=== PATIENT | female | born 1970 | race Caucasian/White ===

== ENCOUNTER 2018-09-25 21:59 | Emergency (ER) | payer MEDICAID ==
[~2018-09-25] VITALS: Ht 165.1 cm; Wt 60.0 kg
[2018-09-25 22:02] VITALS: Ht 165.1 cm; Wt 60.0 kg
[2018-09-25] MEDS ORDERED: DIPHENHYDRAMINE 50 MG INJ IV ONE (23:30)
[2018-09-25] MEDS ORDERED: SOD CHLORIDE 0.9% 1,000 ML IV ONE (23:30)
[2018-09-25] MEDS ORDERED: METOCLOPRAMIDE 10 MG INJ IV ONE (23:30)
--- NOTE | 2018-09-25 23:31 | ERD ---
ER Documentation Chief Complaint Chief Complaint TEMPORAL AREVALO WITH PHOTOPHOBIA X 2 DAYS HPI This is a 48-year-old female who presents emergency department with complaints of headache, light sensitivity. LMP: Last Sunday. . Denies that this is not the worst headache of her life, head injury, loss of consciousness, dizziness, neck pain, neck stiffness, throat pain, difficulty swallowing, difficulty breathing lying flat, shoulder pain, chest pain, back pain, abdominal pain, nausea, vomiting, constipation, diarrhea, urinary symptoms, or possibility being , loss of bowel and bladder control, trauma, injury, falls, difficulty walking due to pain, numbness or tingling sensation, calf pain, recent travel, recent major surgery in the last 3 weeks, calf pain, recent long travel, recent exposure to any illness, recent antibiotic use in the last 3 months, fever, chills, seizures. Past medical history: Denies. Surgical history: Denies. Social: Denies smoking, use of alcoholic beverages, use of illegal drugs. ROS All systems reviewed and are negative except as per history of present illness. Medications Home Meds Active Scripts Ibuprofen* (Motrin*) 600 Mg Tab, 600 MG PO Q6H PRN for PAIN AND OR ELEVATED TEMP, #20 TAB Prov:NEETA MEJIA 09/26/18 Meclizine Hcl* (Antivert*) 12.5 Mg Tab, 12.5 MG PO Q6H PRN for DIZZINESS, #20 TAB Prov:NEETA MEJIA 09/26/18 Diphenhydramine Hcl* (Benadryl*) 25 Mg Cap, 25 MG PO Q6 PRN for ITCHING/RASH, #30 TAB Prov:NEETA MEJIA 09/26/18 Metoclopramide* (Reglan*) 10 Mg Tablet, 10 MG PO Q6 PRN for NAUSEA AND/OR VOMITING, #20 TAB Prov:NEETA MEJIA 09/26/18 Cephalexin* (Keflex*) 500 Mg Capsule, 500 MG PO TID for 7 Days, CAP Prov:NEETA MEJIA 09/26/18 Acetamin/Butalbital/Caffeine* (Fioricet*) [id number] Tab, 1 TAB PO Q6H PRN for PAIN, #30 TAB Prov:NEETA MEJIA 09/26/18 Allergies Allergies: Coded Allergies: No Known Allergy (Unverified , 09/25/18) PMhx/Soc Medical and Surgical Hx: pt denies Medical Hx, pt denies Surgical Hx Hx Alcohol Use: No Hx Substance Use: No Hx Tobacco Use: No Smoking Status: Never smoker Physical Exam Vitals Physical Exam Const: No acute distress Head: Atraumatic Eyes: Normal Conjunctiva. There is no visual field loss. There is no pain in eye movement. ENT: Normal External Ears, Nose and Mouth. Neck: Full range of motion. No meningismus. No nuchal rigidity. No signs of meningeal irritation. Resp: Clear to auscultation bilaterally Cardio: Regular rate and rhythm, no murmurs Abd: Soft, non tender, non distended. Normal bowel sounds Skin: No petechiae or rashes Back: No midline or flank tenderness Ext: No cyanosis, or edema Neur: Awake and alert. No obvious facial droop. Able to follow commands. Equal labor supervisor. Equal strength in bilateral upper and lower extremities. Romberg test is negative. No neurological deficit. Psych: Normal Mood and Affect Results 24 hrs Laboratory Tests Test 09/25/18 23:45 09/26/18 01:05 White Blood Count 9.0 10^3/ul Red Blood Count 4.25 10^6/ul Hemoglobin 13.3 g/dl Hematocrit 40.1 % Mean Corpuscular Volume 94.4 fl Mean Corpuscular Hemoglobin 31.3 pg Mean Corpuscular Hemoglobin Concent 33.2 g/dl Red Cell Distribution Width 12.4 % Platelet Count 277 10^3/UL Mean Platelet Volume 11.8 fl Immature Granulocytes % 0.400 % Neutrophils % 69.6 % Lymphocytes % 20.0 % Monocytes % 7.2 % Eosinophils % 2.1 % Basophils % 0.7 % Nucleated Red Blood Cells % 0.0 /100WBC Immature Granulocytes # 0.040 10^3/ul Neutrophils # 6.2 10^3/ul Lymphocytes # 1.8 10^3/ul Monocytes # 0.6 10^3/ul Eosinophils # 0.2 10^3/ul Basophils # 0.1 10^3/ul Nucleated Red Blood Cells # 0.0 10^3/ul Prothrombin Time 12.0 Sec Prothrombin Time Ratio 0.9 INR International Normalized Ratio 0.88 Activated Partial Thromboplast Time 33.2 Sec Urine Color YELLOW Urine Clarity CLOUDY Urine pH 5.0 Urine Specific [place] 1.010 Urine Ketones 1+ mg/dL Urine Nitrite NEGATIVE mg/dL Urine Bilirubin NEGATIVE mg/dL Urine Urobilinogen NEGATIVE mg/dL Urine Leukocyte Esterase 2+ Christal/ul Urine Microscopic RBC 11 /HPF Urine Microscopic WBC 13 /HPF Urine Squamous Epithelial Cells MODERATE /HPF Urine Bacteria FEW /HPF Urine Hemoglobin 2+ mg/dL Urine Glucose NEGATIVE mg/dL Urine Total Protein NEGATIVE mg/dl Sodium Level 141 mmol/L Potassium Level 4.1 mmol/L Chloride Level 105 mmol/L Carbon Dioxide Level 27 mmol/L Anion Gap 9 Blood Urea Nitrogen 12 mg/dl Creatinine 0.59 mg/dl Est Glomerular Filtrat Rate mL/min > 60 mL/min Glucose Level 103 mg/dl Calcium Level 9.2 mg/dl Total Bilirubin 0.2 mg/dl Direct Bilirubin 0.00 mg/dl Indirect Bilirubin 0.2 mg/dl Aspartate Amino Transf (AST/SGOT) 28 IU/L Alanine Aminotransferase (ALT/SGPT) 22 IU/L Alkaline Phosphatase 56 IU/L Total Protein 7.2 g/dl Albumin 4.3 g/dl Globulin 2.90 g/dl Albumin/Globulin Ratio 1.48 POC Beta HCG, Qualitative NEGATIVE Current Medications Medications Dose Sig/Alek Start Time Status Last (Trade) Ordered Route PRN Stop Time Admin Dose Reason Admin Sodium 1,000 ml @ Q1H ONCE 09/25/18 DC 09/25/18 Chloride 1,000 mls/hr IV 23:30 23:54 09/26/18 00:29 10 mg ONCE ONCE 09/25/18 DC 09/25/18 Metoclopramid IV 23:30 23:54 e HCl 09/25/18 23:31 (Reglan) 25 mg ONCE ONCE 09/25/18 DC 09/25/18 Diphenhydrami IV 23:30 23:54 ne HCl 09/25/18 23:31 (Benadryl) Procedures/MDM Diagnostic tests: POC urine : Negative. Blood works: Reviewed. Urinalysis: UTI. Treatment: Saline lock. Normal saline IV bolus. Reglan IV. Benadryl IV. Re-evaluation: Romberg test negative. No neurological deficits. Differential diagnosis I have low suspicion for subarachnoid hemorrhage, stroke, sepsis. Final diagnosis: UTI. Migraine. Prescription: Keflex. Fioricet. Reglan. Benadryl. Antivert. Motrin. Follow-up with PCP in the next 24-48 hours. Come back here in the emergency department for any new symptoms or any worsening symptoms. All questions and concerns were answered. Patient and family members verbalized understanding and agreed with plan of care. Hemodynamically stable on discharge. Departure Diagnosis: Primary Impression: Headache Additional Impressions: Migraine UTI (urinary tract infection) Condition: Stable Additional Instructions: Follow-up with PCP in the next 24-48 hours. Come back here in the emergency department for any new symptoms or any worsening symptoms. NEETA MEJIA Sep 25, 2018 23:31
[2018-09-26] MEDS ORDERED: BEN25 PO (01:52)
[2018-09-26] MEDS ORDERED: FIORICET PO (01:52)
[2018-09-26] MEDS ORDERED: CEPH-443 PO (01:52)
[2018-09-26] MEDS ORDERED: MECL12.574 PO (01:52)
[2018-09-26] MEDS ORDERED: METO10TA92 PO (01:52)
[2018-09-26] MEDS ORDERED: IBUP-1542 PO (01:53)
[2018-09-26 02:02] VITALS: BP 114/62; PULSE 86; RESP 20
== END 2018-09-26 02:03 | disposition home or self-care (01) ==
LOC: FTE 21:59
DX: G43.909 Migraine, unspecified, not intractable, without status migrainosus (principal); N39.0 Urinary tract infection, site not specified
CPT/HCPCS: 80053; 81001; 81025; 85025; 85610; 85730; 87086; 96374; 96375; J1200; J2765; J7030; Z7502